=== PATIENT | female | born 1995 | race Caucasian/White ===

== ENCOUNTER 2016-03-06 16:04 | Emergency (ER) | payer BC, OTHER ==
[2016-03-06 17:02] LABS: Hemoglobin 12.2 g/dL (12.0-16.0); MDiff Complete? YES; Manual Diff?? YES; Mean Corpuscular HGB CONC 32.4 g/dL (32.0-36.0); Mean Corpuscular Hemoglobin 25.6 pg (25.0-35.0); Mean Platelet Volume 7.4 fL (7.4-10.4); Platelet Count 242 thou/uL (130-400); RBC Distribution Width 14.3 % (11.5-14.5); Red Blood Cell (RBC) Count 4.78 mill/uL (4.00-5.20); White Blood Cell (WBC) Count 10.8 thou/uL (4.8-10.8)
[2016-03-06 17:03] LABS: Band 2 % (5-11); Lymphocytes 29 % (28-48); Monocytes 5 % (0-4); Neutrophil 59 % (31-61); Reactive Lymphocytes 5 % (0-10)
[2016-03-06 17:04] LABS: ALT (SGPT) 12 U/L (0-55); AST (SGOT) 11 U/L (5-34); Alkaline Phosphatase 90 U/L (40-150); Anion Gap 18 mmol/L (10-20); BUN (Urea Nitrogen) 10 mg/dL (7.0-18.7); Bilirubin, Total 0.4 mg/dL (0.2-1.2); Calc. Creatinine Clearance 0 mL/min (70-130); Calcium 9.2 mg/dL (7.8-10.44); Carbon Dioxide 18 mmol/L (22-29); Chloride 108 mmol/L (98-107); Estimated GFR-MDRD Greater than 90; Globulin 2.8 g/dL (2.4-3.5); Glucose 72 mg/dL (70-105); Protein, Total 6.8 g/dL (6.0-8.3); Sodium 140 mmol/L (136-145)
--- NOTE | 2016-03-06 19:27 | ERRECORD ---
[facility] EMERGENCY RECORD HPI ALLERGY (16:54 ABUS) CHIEF COMPLAINT: Patient presents for evaluation of swelling, Patient presents for evaluation of Gums. HISTORIAN: History provided by patient, 20 yr old F with known gingivitis and post 5 months who comes in with report taking amoxicillin for strep throat (confirmed with testing by PCP) and having sensation of SOB and swelling to the gums. Denies any F/C, N/V, itching, tongue swelling. LMP Feb 18. LOCATION: Symptoms are localized, Gums. QUALITY: Dermal only. SEVERITY: Currently symptoms are mild, Current severity of pain rated as 7/10. TIME COURSE: Sudden onset of symptoms. ASSOCIATED WITH: Associated symptoms reviewed, No associated cough, No associated chest pain, No associated stridor, No associated swelling, No associated wheezing. RELIEVED BY: Patient's condition relieved by nothing. ROS (16:58 ABUS) CONSTITUTIONAL: Negative constitutional review of systems, Historian denies chills, denies fever. ENT: gingival swelling, redness , halitosis. CARDIOVASCULAR: Negative cardiovascular review of systems, Historian denies chest pain, denies palpitations. RESPIRATORY: Negative respiratory review of systems, Historian denies cough, denies shortness of breath. GI: Negative gastrointestinal review of systems, Historian denies abdominal pain, denies constipation, denies diarrhea, denies nausea, denies vomiting. GENITOURINARY FEMALE: Negative genitourinary review of systems, Historian denies dysuria, denies frequency. SKIN: Negative skin review of systems, Historian denies pruritis, denies rash, denies skin changes, denies rash, Historian denies skin changes. NEUROLOGIC: Negative neurologic review of systems, Historian denies headache. HEMO/LYMPHATIC: Normal hematologic/lymphatic system review, Historian denies abnormal blood clotting. PAST MEDICAL HISTORY (16:17 MDEB) MEDICAL HISTORY: Notes: MIGRAINES. FEMALE SURGICAL HISTORY: R FOOT. PSYCHIATRIC HISTORY: Notes: DENIES. SOCIAL HISTORY: Patient denies alcohol use, Patient denies drug use, Patient has no smoking history. KNOWN ALLERGIES LATEX, IBUPROFEN Penicillins CURRENT MEDICATIONS &a-1R&a+25V*p+0X*m3136S*c202B*c15G*c2P*p-0X&a-25V&a+1R Name: Kandi Dejesus : 1995 F20 MedRec: [id number] AcctNum: [id number] Prepared: Ramírez Mar 06, 2016 20:56 by Interface Page 1 of 3 pMD [facility] EMERGENCY RECORD No recorded medications VITAL SIGNS VITAL SIGNS: BP: 136/85, Pulse: 97, Resp: 20, Temp: 99.1 (Tympanic), Pain: 7, O2 sat: 94 on Room Air, Time: 03/06/2016 16:14. (16:14 MDEB) BP: 132/84, Pulse: 92, Resp: 20, Temp: 99.0, Pain: 6, O2 sat: 96 on RA, Time: 03/06/2016 18:49. (18:49 ADEA) PHYSICAL EXAM CONSTITUTIONAL: Vital signs reviewed, Patient afebrile, Pulse normal, Blood pressure normal, Respiratory rate normal, Patient appears non toxic, Patient appears pain free, Patient alert and oriented to person, place and time. (16:58 ABUS) ENT: Ear exam normal, Nose exam normal, Mouth exam included findings of, Tongue not elevated, gingival swelling, redness , halitosis, Teeth with. (16:59 ABUS) NECK: Neck exam normal, Neck exam included findings of normal range of motion, Trachea midline, no meningeal signs, no cervical adenopathy, no tenderness. (16:58 ABUS) RESPIRATORY CHEST: Respiratory and chest exam normal, Respiratory exam included findings of no respiratory distress, Breath sounds clear. (16:58 ABUS) CARDIOVASCULAR: Cardiovascular assessment normal, Cardiovascular exam included findings of heart rate regular rate and rhythm, Heart sounds normal. (16:58 ABUS) ABDOMEN FEMALE: Abdominal exam included findings of abdomen nontender, Bowel sounds normal, no distension, no mass, no pulsatile masses, no peritoneal signs, no rigidity, no guarding, no rebound, Rovsing's sign absent. (16:58 ABUS) BACK: Back exam normal, Back exam included findings of normal inspection, range of motion normal, no tenderness. (16:58 ABUS) NEURO: Neuro exam normal, Neuro exam findings include patient oriented to person, place and time, Speech normal, Gait normal. (16:58 ABUS) SKIN: Skin exam normal, Skin exam included findings of skin warm, dry, and normal in color, no rash. (16:58 ABUS) MEDICATION ADMINISTRATION SUMMARY Drug Name: clindamycin intravenous, Dose Ordered: 300 mg, Route: IV Piggy Back, Status: Given, Time: 16:55 03/06/2016, Detailed record available in Medication Service section. DOCTOR NOTES (16:59 ABUS) TEXT: 20 yr old F with known gingivitis and post 5 months who comes in with report taking amoxicillin for strep throat (confirmed with testing by PCP) and having sensation of SOB and swelling to the gums. EXAM: gingival swelling, redness , halitosis, &a-1R&a+25V*p+0X*n4998Z*c202B*c15G*c2P*p-0X&a-25V&a+1R Name: Kandi Dejesus : 1995 F20 MedRec: [id number] AcctNum: [id number] Prepared: Ramírez Mar 06, 2016 20:56 by Interface Page 2 of 3 pMD [facility] EMERGENCY RECORD DX: Gingivitis vs ANUG PLAN: Monitor, IV, labs, Clindamycin UPDATE: No SOB or s/s of allergic reaction. Counseled pt and mother about plan of care and rational. She voiced understanding and agreement. PROBLEM LIST No recorded problems DIAGNOSIS (18:28 ABUS) FINAL: PRIMARY: ACUTE GINGIVITIS PLAQUE INDUCED. PRESCRIPTION (18:28 ABUS) Peridex: MOUTHWASH : 0.12 % : MUCOUS MEMBRANE : Quantity: 15 Unit: mL Route: MUCOUS MEMBRANE Schedule: 2 times a day Dispense: * May substitute. Refills: No Refills . NOTES: swish for 30-60 seconds. Dispense 473 mL or largest bottle. No Refills. clindamycin HCl: CAPSULE : 300 mg : ORAL : Quantity: 1 Unit: cap(s) Route: ORAL Schedule: 3 times a day Dispense: 21 Unit: cap(s) May substitute. Refills: No Refills . NOTES: No Refills. DISPOSITION PATIENT: Disposition Type: Discharge, Disposition: *Discharge Home, Condition: Good. (18:28 ABUS) Disposition Transport: Car. (19:17 ADEA) Patient left the department. (19:17 ADEA) [place]: AB=MD Robert, Yosvany LINCOLN=JEVON Puckett, Bunny RALPHEB=JEVON Scott, Sarah &a-1R&a+25V*p+0X*c0096Q*c202B*c15G*c2P*p-0X&a-25V&a+1R Name: Kandi Dejesus : 1995 F20 MedRec: [id number] AcctNum: [id number] Prepared: Ramírez Mar 06, 2016 20:56 by Interface Page 3 of 3 pMD MTDD
--- NOTE | 2016-03-06 19:34 | PICIS ---
[facility] (16:17 MDEB) PATIENT: NAME: Kandi Dejesus, AGE: 20, GENDER: female, : Sat 1995, TIME OF GREET: SatMar 06, 2016 16:05, PREFERRED LANGUAGE: Greenlandic, RACE: C, ECODE BILLING MAP: [facility], Zip Code: [address], KG WEIGHT: 58.06, PHONE: , , , PERSON ID: [id number], PCP: VERITO. (16:17 MDEB) TRIAGE NOTES: ANGIO EDEMA STARTED 09:00 - WORSE IN PAST HOUR. "HURTS TO BREATH" STARTED ON AMOXICILLIN YESTERDAY FOR STREP. (16:17 MDEB) COMPLAINT: ALLERGIC REACTION. (16:17 MDEB) ADMISSION: URGENCY: 3 Urgent, ADMISSION SOURCE: Home, TRANSPORT: Walk-in, BED: TRIAGE. (16:17 MDEB) ASSESSMENT: Assessment: SWELLING TO LOWER LIP, GUMS. (16:17 MDEB) PAIN: Patient complains of pain described as, aching, on a scale 0-10 patient rates pain as 6. (16:17 MDEB) IMMUNIZATIONS: Tetanus immunization up to date. (16:17 MDEB) TRIAGE SCREENING: Patient denies suicidal ideation, Patient denies presence of domestic violence. (16:17 MDEB) PROVIDERS: TRIAGE NURSE: Sarah Scott RN. (16:17 MDEB) VITAL SIGNS: BP 136/85, Pulse 97, Resp 20, Temp 99.1, (Tympanic), Pain 7, O2 Sat 94, on Room Air, Time 03/06/2016 16:14. (16:14 MDEB) KNOWN ALLERGIES LATEX, IBUPROFEN Penicillins CURRENT MEDICATIONS No recorded medications VITAL SIGNS VITAL SIGNS: BP: 136/85, Pulse: 97, Resp: 20, Temp: 99.1 (Tympanic), Pain: 7, O2 sat: 94 on Room Air, Time: 03/06/2016 16:14. (16:14 MDEB) BP: 132/84, Pulse: 92, Resp: 20, Temp: 99.0, Pain: 6, O2 sat: 96 on RA, Time: 03/06/2016 18:49. (18:49 ADEA) NURSING PROCEDURE: BUSINESS RELATIONSHIP MANAGER (16:17 MDАЛЕКСАНДР) PATIENT IDENTIFIER: Patient actively involved in identification process, Patient's identity verified by patient stating name, Patient's identity verified by hospital ID lorie. BUSINESS RELATIONSHIP MANAGER: Cardiac monitoring indicated for POSS ALLERGIC REACTION, Patient placed on zoning administrator, Patient placed on non-invasive blood pressure monitor, Patient placed on continuous pulse oximetry. FOLLOW-UP: After procedure, alarms set and on, After procedure, patient tolerating monitoring. NOTES: Emotional support needed and given, Patient tolerated procedure well. &a-1R&a+25V*p+0X*w2969P*c202B*c15G*c2P*p-0X&a-25V&a+1R Name: Kandi Dejesus : 1995 F20 MedRec: [id number] AcctNum: [id number] Prepared: Ramírez Mar 06, 2016 21:03 by Interface Page 1 of 7 pMD [facility] EMERGENCY RECORD SAFETY: Side rails up, Cart/Stretcher in lowest position, Family at bedside, Call light within reach, Hospital ID band on. NURSING PROCEDURE: DISCHARGE NOTE (18:49 ADEA) DISCHARGE: Patient discharged to home, ambulating without assistance, family driving, accompanied by parent, Summary of Care printed/ provided, Patient requested and was provided an electronic copy of Discharge Instructions, Transition record given to patient, Discharge instructions given to patient, Simple or moderate discharge teaching performed, by JEVON MARTINEZ, Prescriptions given and instructions on side effects given, Name of prescription(s) given: SEE MD CHART, Medication reconciliation form given, and reviewed with patient, Above person(s) verbalized understanding of discharge instructions and follow-up care, Patient treated and evaluated by physician. BELONGINGS: Belongings remain with patient, Valuables remain with patient. VITAL SIGNS: BP: 132, / 84, Pulse: 92, Resp: 20, Temp: 99.0, Pain: 6, O2 sat: 96, on: RA, Time: 9. NURSING PROCEDURE: IV PATIENT IDENITIFIER: Patient actively involved in identification process, Patient's identity verified by patient stating name, Patient's identity verified by hospital ID bratravis. (16:30 MDАЛЕКСАНДР) Patient actively involved in identification process, Patient's identity verified by patient stating name, Patient's identity verified by patient stating date. (18:45 ADEA) IV SITE 1: IV therapy indicated for hydration, IV therapy indicated for medication administration, IV established, to the left forearm, using a 20 gauge catheter, in one attempt, IV site prepped with ALCOHOL, Saline lock established, Flushed with normal saline (mls): 10, Notes: UNABLE TO DRAW LABS FROM IV SITE - LAB CALLED. (16:30 MDEB) FOLLOW-UP SITE 1: After procedure, sterile transparent dressing applied. (16:30 MDEB) IV discontinued, due to patient being discharged, catheter intact, Notes: dressing placed, secured with Coban, no bleeding, tolerated well. (18:45 ADEA) NOTES: Emotional support needed and given, Patient tolerated procedure well. (16:30 MDEB) Patient tolerated procedure well. (18:45 ADEA) SAFETY: Side rails up, Cart/Stretcher in lowest position, Family at bedside, Call light within reach, Hospital ID band on. (16:30 MDEB) ORDER DETAILS Order Name: CBC with Differential, Status: Active, Time: 16:34 03/06/2016, User: ANNY, - Ordered for: MD Jones Anthony, &a-1R&a+25V*p+0X*c0192Z*c202B*c15G*c2P*p-0X&a-25V&a+1R Name: Kandi Dejesus : 1995 F20 MedRec: [id number] AcctNum: [id number] Prepared: Ramírez Mar 06, 2016 21:03 by Interface Page 2 of 7 pMD [facility] EMERGENCY RECORD - Entered by: MD Jones Anthony - Ramírez Mar 06, 2016 16:34, - Quantity: 1, Order Name: Comprehensive Metabolic Panel, Status: Active, Time: 16:34 03/06/2016, User: ANNY, - Ordered for: MD Jones Anthony, - Entered by: MD Jones Anthony - Tue Mar 06, 2016 16:34, - Quantity: 1. MEDICATION ADMINISTRATION SUMMARY Drug Name: clindamycin intravenous, Dose Ordered: 300 mg, Route: IV Piggy Back, Status: Given, Time: 16:55 03/06/2016, Detailed record available in Medication Service section. MEDICATION SERVICE clindamycin intravenous: Order: clindamycin intravenous (clindamycin phosphate) - Dose: 300 mg : IV Piggy Back Schedule: Now Ordered by: Yosvany Jones MD Entered by: Yosvany Jones MD SatMar 06, 2016 16:45 , Acknowledged by: Sarah Scott RN SatMar 06, 2016 16:49 Documented as given by: Sarah Scott RN SatMar 06, 2016 16:55 Patient, Medication, Dose, Route and Time verified prior to administration. Amount given: 300 MG, IV SITE #1 IVPB or drip, initial infusion, Premixed, via primary tubing, Catheter placement confirmed via flush prior to administration, IV site without signs or symptoms of infiltration during medication administration, No swelling during administration, No drainage during administration, IV flushed after administration, Correct patient, time, route, dose and medication confirmed prior to administration, Patient advised of actions and side-effects prior to administration, Allergies confirmed and medications reviewed prior to administration, Patient in position of comfort, Side rails up, Cart in lowest position, Family at bedside. : Follow Up : _IV SITE #1:_, Medication infusion discontinued, on SatMar 06, 2016 17:40, 45 minutes, ., Total amount infused: 300 MG, Advised not to ambulate without assistance, Patient in position of comfort, Side rails up, Cart in lowest position, Family at bedside. (17:40 MDEB) HPI ALLERGY (16:54 ABUS) CHIEF COMPLAINT: Patient presents for evaluation of swelling, Patient presents for evaluation of Gums. HISTORIAN: History provided by patient, 20 yr old F with known gingivitis and post 5 months who comes in with report taking amoxicillin for strep throat (confirmed with testing by PCP) and having sensation of SOB and swelling to the gums. Denies any F/C, N/V, itching, tongue swelling. LMP Feb 18. LOCATION: Symptoms are localized, Gums. QUALITY: Dermal only. SEVERITY: Currently &a-1R&a+25V*p+0X*y2251N*c202B*c15G*c2P*p-0X&a-25V&a+1R Name: Kandi Dejesus : 1995 F20 MedRec: [id number] AcctNum: [id number] Prepared: Ramírez Mar 06, 2016 21:03 by Interface Page 3 of 7 pMD [facility] EMERGENCY RECORD symptoms are mild, Current severity of pain rated as 7/10. TIME COURSE: Sudden onset of symptoms. ASSOCIATED WITH: Associated symptoms reviewed, No associated cough, No associated chest pain, No associated stridor, No associated swelling, No associated wheezing. RELIEVED BY: Patient's condition relieved by nothing. ROS (16:58 ABUS) CONSTITUTIONAL: Negative constitutional review of systems, Historian denies chills, denies fever. ENT: gingival swelling, redness , halitosis. CARDIOVASCULAR: Negative cardiovascular review of systems, Historian denies chest pain, denies palpitations. RESPIRATORY: Negative respiratory review of systems, Historian denies cough, denies shortness of breath. GI: Negative gastrointestinal review of systems, Historian denies abdominal pain, denies constipation, denies diarrhea, denies nausea, denies vomiting. GENITOURINARY FEMALE: Negative genitourinary review of systems, Historian denies dysuria, denies frequency. SKIN: Negative skin review of systems, Historian denies pruritis, denies rash, denies skin changes, denies rash, Historian denies skin changes. NEUROLOGIC: Negative neurologic review of systems, Historian denies headache. HEMO/LYMPHATIC: Normal hematologic/lymphatic system review, Historian denies abnormal blood clotting. PAST MEDICAL HISTORY (16:17 MDEB) MEDICAL HISTORY: Notes: MIGRAINES. FEMALE SURGICAL HISTORY: R FOOT. PSYCHIATRIC HISTORY: Notes: DENIES. SOCIAL HISTORY: Patient denies alcohol use, Patient denies drug use, Patient has no smoking history. PHYSICAL EXAM CONSTITUTIONAL: Vital signs reviewed, Patient afebrile, Pulse normal, Blood pressure normal, Respiratory rate normal, Patient appears non toxic, Patient appears pain free, Patient alert and oriented to person, place and time. (16:58 ABUS) ENT: Ear exam normal, Nose exam normal, Mouth exam included findings of, Tongue not elevated, gingival swelling, redness , halitosis, Teeth with. (16:59 ABUS) NECK: Neck exam normal, Neck exam included findings of normal range of motion, Trachea midline, no meningeal signs, no cervical adenopathy, no tenderness. (16:58 ABUS) RESPIRATORY CHEST: Respiratory and chest exam normal, Respiratory exam included findings of no respiratory distress, Breath sounds clear. (16:58 ABUS) CARDIOVASCULAR: Cardiovascular assessment normal, Cardiovascular &a-1R&a+25V*p+0X*p5109O*c202B*c15G*c2P*p-0X&a-25V&a+1R Name: Kandi Dejesus : 1995 F20 MedRec: [id number] AcctNum: [id number] Prepared: SatMar 06, 2016 21:03 by Interface Page 4 of 7 pMD [facility] EMERGENCY RECORD exam included findings of heart rate regular rate and rhythm, Heart sounds normal. (16:58 ABUS) ABDOMEN FEMALE: Abdominal exam included findings of abdomen nontender, Bowel sounds normal, no distension, no mass, no pulsatile masses, no peritoneal signs, no rigidity, no guarding, no rebound, Rovsing's sign absent. (16:58 ABUS) BACK: Back exam normal, Back exam included findings of normal inspection, range of motion normal, no tenderness. (16:58 ABUS) NEURO: Neuro exam normal, Neuro exam findings include patient oriented to person, place and time, Speech normal, Gait normal. (16:58 ABUS) SKIN: Skin exam normal, Skin exam included findings of skin warm, dry, and normal in color, no rash. (16:58 ABUS) EVENTS TRANSFER: Triage to Emergency Triage. (SatMar 06, 2016 16:17 MDEB) Emergency Triage to Main ED -04. (16:20 JPAR) Removed from Emergency Main ED -04. (19:17 ADEA) DOCTOR NOTES (16:59 ABUS) TEXT: 20 yr old F with known gingivitis and post 5 months who comes in with report taking amoxicillin for strep throat (confirmed with testing by PCP) and having sensation of SOB and swelling to the gums. EXAM: gingival swelling, redness , halitosis, DX: Gingivitis vs ANUG PLAN: Monitor, IV, labs, Clindamycin UPDATE: No SOB or s/s of allergic reaction. Counseled pt and mother about plan of care and rational. She voiced understanding and agreement. PROBLEM LIST No recorded problems DIAGNOSIS (18:28 ABUS) FINAL: PRIMARY: ACUTE GINGIVITIS PLAQUE INDUCED. DISPOSITION PATIENT: Disposition Type: Discharge, Disposition: *Discharge Home, Condition: Good. (18:28 ABUS) Disposition Transport: Car. (19:17 ADEA) Patient left the department. (19:17 ADEA) INSTRUCTION (18:29 ABUS) DISCHARGE: GINGIVITIS (CHILD). SPECIAL: As discussed in the ER before you left, please follow up with your primary care doctor or call the referral made for you here in the ED today to establish outpatient follow up for your medical care. Please come back sooner if you start to develop fever, &a-1R&a+25V*p+0X*x3068K*c202B*c15G*c2P*p-0X&a-25V&a+1R Name: Kandi Dejesus : 1995 F20 MedRec: [id number] AcctNum: [id number] Prepared: Ramírez Mar 06, 2016 21:03 by Interface Page 5 of 7 pMD [facility] EMERGENCY RECORD worsening pain, swelling, or symptoms that are new or symptoms the concern you. It is very important that you follow up with dentist in the next 1-2 days. PRESCRIPTION (18:28 ABUS) Peridex: MOUTHWASH : 0.12 % : MUCOUS MEMBRANE : Quantity: 15 Unit: mL Route: MUCOUS MEMBRANE Schedule: 2 times a day Dispense: * May substitute. Refills: No Refills . NOTES: swish for 30-60 seconds. Dispense 473 mL or largest bottle. No Refills. clindamycin HCl: CAPSULE : 300 mg : ORAL : Quantity: 1 Unit: cap(s) Route: ORAL Schedule: 3 times a day Dispense: 21 Unit: cap(s) May substitute. Refills: No Refills . NOTES: No Refills. IMAGING WORK/SCHOOL RELEASE: Image captured from scanner. (18:51 MDEB) *DISCHARGE INSTRUCTIONS RECEIPT: Image captured from scanner. (18:52 MDEB) *SUPPLY CHARGE SHEET: Image captured from scanner. (18:52 MDEB) ADMIN (20:50 ABUS) DIGITAL SIGNATURE: MD Jones Anthony. RESULTS (17:25 SFRE) LABORATORY: CBC with Differential Collection DT: SatMar 06, 2016 16:43, White Blood Cell (WBC) Count 10.8 thou/uL, Range (4.8-10.8), Red Blood Cell (RBC) Count 4.78 mill/uL, Range (4.00-5.20), Hemoglobin 12.2 g/dL, Range (12.0-16.0), Hematocrit 37.8 %, Range (36.0-47.0), Mean Corpuscular Volume 79.0 fl, Range (77.0-87.0), Mean Corpuscular Hemoglobin 25.6 pg, Range (25.0-35.0), Mean Corpuscular HGB CONC 32.4 g/dL, Range (32.0-36.0), RBC Distribution Width 14.3 %, Range (11.5-14.5), Platelet Count 242 thou/uL, Range (130-400), Mean Platelet Volume 7.4 fL, Range (7.4-10.4), Neutrophil 59 %, Range (31-61), *Band 2 - L %, Range (5-11), Lymphocytes 29 %, Range (28-48), Reactive Lymphocytes 5 %, Range (0-10), *Monocytes 5 - H %, Range (0-4). Comprehensive Metabolic Panel Collection DT: SatMar 06, 2016 16:43, Sodium 140 mmol/L, Range (136-145), Potassium 4.0 mmol/L, Range (3.5-5.1), *Chloride 108 - H mmol/L, Range (98-107), *Carbon Dioxide 18 - L mmol/L, Range (22-29), &a-1R&a+25V*p+0X*o5753H*c202B*c15G*c2P*p-0X&a-25V&a+1R Name: Kandi Dejesus : 1995 F20 MedRec: [id number] AcctNum: [id number] Prepared: SatMar 06, 2016 21:03 by Interface Page 6 of 7 pMD [facility] EMERGENCY RECORD Anion Gap 18 mmol/L, Range (10-20), BUN (Urea Nitrogen) 10 mg/dL, Range (7.0-18.7), Creatinine 0.69 mg/dL, Range (0.6-1.1), Estimated GFR-MDRD Greater than 90 , Reference Range for Estimated GFR: Greater than 90, mL/min/1.73 m2 NOTE: The MDRD equation has not been validated for use, with the elderly (over 70 years of age), women, patients with, serious comorbid condition or persons with extremes of body size, muscle, mass, or nutritional status. , Glucose 72 mg/dL, Range (70-105), Calcium 9.2 mg/dL, Range (7.8-10.44), Bilirubin, Total 0.4 mg/dL, Range (0.2-1.2), Protein, Total 6.8 g/dL, Range (6.0-8.3), NOTE: Plasma values are generally 0.3 to 0.5 g/dL higher than serum values, due to the presence of fibrinogen. , Albumin 4.0 g/dL, Range (3.5-5.0), Globulin 2.8 g/dL, Range (2.4-3.5), Alb/Glob Ratio 1.4 g/dL, Range (1.2-2.2), Alkaline Phosphatase 90 U/L, Range (40-150), AST (SGOT) 11 U/L, Range (5-34), ALT (SGPT) 12 U/L, Range (0-55). [place]: ANNY=MD Robert, Yosvany LINCOLN=JEVON Puckett, Bunny BELTRAN=LISA Hopson Julia MDEB=JEVON Scott, Sarah ORTIZ=JEVON Jensen, Marissa &a-1R&a+25V*p+0X*y4531X*c202B*c15G*c2P*p-0X&a-25V&a+1R Name: Kandi Dejesus : 1995 F20 MedRec: [id number] AcctNum: [id number] Prepared: Ramírez Mar 06, 2016 21:03 by Interface Page 7 of 7 pMD MTDD
== END 2016-03-06 18:49 | disposition home or self-care (01) ==
LOC: MADERS 16:04
DX: K05.00 Acute gingivitis, plaque induced (principal)
CPT/HCPCS: 36415; 80053; 85025; 96365; J3490

== ENCOUNTER 2020-09-05 22:26 | Emergency (ER) | payer BC ==
[2020-09-05] MEDS ORDERED: Acetaminophen 500 MG TAB ONE (23:55)
[2020-09-05] MEDS ORDERED: Ondansetron ODT 4 MG TAB ONE (23:55)
[2020-09-06 17:24] LABS: SARS-CoV-2 PCR by NAA DETECTED (NotDetected)
== END 2020-09-06 00:11 | disposition home or self-care (01) ==
LOC: MADERS 22:26
DX: U07.1 COVID-19 (principal); G43.909 Migraine, unspecified, not intractable, without status migrainosus
CPT/HCPCS: 99283; Q0162; U0003; U0005

== ENCOUNTER 2024-01-17 19:11 | Emergency (ER) | payer BC, OTHER, SELFPAY ==
[2024-01-17] MEDS ORDERED: Acetaminophen 500 MG TAB ONE (19:39)
[2024-01-17] MEDS ORDERED: Ondansetron ODT 4 MG TAB ONE (19:39)
== END 2024-01-17 21:25 | disposition home or self-care (01) ==
LOC: MADERS 19:11
DX: J10.1 Influenza due to other identified influenza virus with other respiratory manifestations (principal)
CPT/HCPCS: 87400; 99283; Q0162